=== PATIENT | male | born 1995 | race Caucasian/White ===

== ENCOUNTER 2018-09-24 02:33 | Emergency (ER) | payer SELFPAY, BC ==
[2018-09-24] MEDS: DIPHTH/TET/ACEL PERTUSS (ADULT) 0.5 ML VIAL IM* (05:41)
== END 2018-09-24 05:53 | disposition home or self-care (01) ==
LOC: E/R 02:33
DX: S01.01XA Laceration without foreign body of scalp, initial encounter (principal); S30.0XXA Contusion of lower back and pelvis, initial encounter; V58.6XXA Passenger in pick-up truck or van injured in noncollision transport accident in traffic accident, initial encounter; Z23 Encounter for immunization
CPT/HCPCS: 12004; 70450; 72125; 72170; 90471; 90715; 99284-25

== ENCOUNTER 2018-10-02 11:44 | Emergency (ER) | payer OTHER | END 2018-10-02 17:00 | disposition home or self-care (01) | LOC: FTE 11:44 | DX: Z48.02 Encounter for removal of sutures (principal) | CPT/HCPCS: 99281 ==